=== PATIENT | male | born 1975 | race Caucasian/White ===

== ENCOUNTER → 2025-01-17 | Outpatient (CLI) | payer OTHER ==
[2025-01-17 17:05] LABS: BASO # 0.03 K/mm3 (0.02-0.10); EOS # 0.08 K/mm3 (0.04-0.40); EOS % 1.3 % (0.0-4.0); HEMATOCRIT 48.6 % (42.0-52.0); HEMOGLOBIN 16.7 g/dL (13.5-18.0); LYMPH# 1.76 K/mm3 (1.50-4.00); MEAN CELL VOLUME 86 fl (78-100); MEAN CORPUSCULAR HEMOGLOBIN 30 pg (27-31); MEAN CORPUSCULAR HGB CONC 34 g/dL (33-37); MONO # 0.49 K/mm3 (0.20-0.80); PLATELET COUNT 208 K/mm3 (130-400); RED BLOOD COUNT 5.63 M/mm3 (4.20-5.60); RED CELL DISTRIBUTION WIDTH 12.9 % (11.5-14.5); WHITE BLOOD COUNT 6.2 K/mm3 (4.8-10.8)
[2025-01-17 17:09] LABS: ALBUMIN 4.1 g/dL (3.5-5.0); CALCIUM 8.7 mg/dL (8.3-10.5)
[2025-01-17 17:11] LABS: TOTAL PROTEIN 7.4 g/dL (6.4-8.3)
[2025-01-17 17:13] LABS: TOTAL BILIRUBIN 0.6 mg/dL (0.2-1.2)
[2025-01-17 17:17] LABS: MAGNESIUM 2.08 mg/dL (1.60-2.60)
[2025-01-17 23:34] LABS: FOLATE (FOLIC ACID) 13.4 ng/mL (2.0-20.0); TESTOSTERONE 326 ng/dL (221-716)
[2025-01-21 22:09] LABS: ANTI-CYC CITRULLINATED PEPT AB 12 units (0-19)
== END ==
LOC: LAB 16:46
PROVIDERS: Internal Medicine
DX: Z12.5 Encounter for screening for malignant neoplasm of prostate (principal); I10 Essential (primary) hypertension; F52.21 Male erectile disorder; E78.2 Mixed hyperlipidemia; M25.50 Pain in unspecified joint; R20.2 Paresthesia of skin; R73.9 Hyperglycemia, unspecified